=== PATIENT | male | born 1965 | race Caucasian/White ===

== ENCOUNTER 2024-05-25 15:59 | Emergency (ER) | payer BC, SELFPAY ==
[2024-05-25 16:01] VITALS: BP 127/79; PULSE 83; RESP 16; TEMP 36.9; O2SAT 98; BMI 25.8
[2024-05-25] MEDS: Fluorescein 1 MG STRIP 1 STRIP OPHTHALMIC (16:22)
--- NOTE | 2024-05-25 16:42 | EX.ED.VIS.EY ---
HPI History of Present Illness Chief Complaint: Eye Problem Informant: patient Narrative Narrative: Patient is a 58 year old male with history of allergies (currently getting allergy shots) presenting for evaluation after he was around glass that broke and he is worried he has some glass in his eyes. Patient states he was moving a safe and there was an old glass/ceramic globe that fell and shattered. Most of it hit his right arm but a lot of it got onto his face. He had some irritation of his eyes, right greater than left. He has a slight foreign body sensation of his right eye. He notes when he wiped his eyes there is small shards of glass bright below his eyes that he wiped away. He is worried there could be glass in his eye so he came in for further evaluation. Is a significant pain to his eyes and denies any vision changes. He wears reading glasses. He sees an it programmer, Dr. Zhao in [place]. Is unsure when his last tetanus was but thinks it for more than 10 years. No other complaints or concerns reported at this time. PFS PFS Home Medications ?Medication ?Instructions ?Recorded ?Last Taken ?Type peg 400-propylene glycol (PF) 0.4 1 drp EACH EYE Q6H PRN dry eye(s) 05/25/24 Unknown Rx %-0.3 % eye drops in a dropperette #30 ea (Systane (PF)) Allergy/AdvReac Type Severity Reaction Status Date / Time aspirin Allergy Severe Anaphylaxis Verified 05/25/24 16:01 NSAIDS (Non-Steroidal Allergy Severe PT UNSURE Verified 05/25/24 16:01 Anti-Inflamma OF REACTION Social History Smoking Status: Unknown if ever smoked ROS ROS ED Constitutional Constitutional ED: Denies chills or fever(s) Eyes Eyes: Reports other Details: right> left eye discomfort, FB sensation to the right eye ; Denies blurry vision or change in vision ENT ENT ED: Denies rhinorrhea or sore throat Cardiovascular Cardiovascular: Denies chest pain Respiratory/Chest Respiratory/Chest: Denies cough Gastrointestinal Gastrointestinal: Denies nausea or vomiting Musculoskeletal Musculoskeletal: Denies arthralgias or myalgias Integumentary Reports Abrasions Hematologic/Lymphatic Hematologic/Lymphatic: Denies easy bleeding or easy bruising EXAM Physical Exam Const Vital Signs: 05/25/24 16:01 Temperature 98.5 F Temperature Source Oral Pulse Rate 83 Respiratory Rate 16 Blood Pressure 127/79 H Blood Pressure Mean 95 Pulse Ox 98 Oxygen Delivery Method Room Air Positive well nourished and well developed General Appearance ED: well developed and NAD HEENT atraumatic Eyes Eyes Narrative: PERRL, EOMI, no conjunctival injection. No lacerations to the eyelids. Normal flare. No hyphema appreciated. On fluorescein exam negative Sidel sign. Other scattered punctate uptake consistent with dry eye (worse on the left than the right) but no uptake consistent with corneal abrasion. No foreign bodies appreciated. Neck supple Resp normal respiratory effort Cardio regular rate and regular rhythm Extremity normal to inspection Neuro oriented x3 Sensorium / Orientation: alert Motor Exam: Negative for general weakness Skin Skin Narrative: Small abrasion to the right forearm, no active bleeding MDM MDM MDM Narrative Medical decision making narrative: Patient valuated for concern of glass in his eyes. He was around glass that shattered. He did get some glass to his face and had some mild irritation to his eyes and wanted to be checked out as he did not want glass embedded in his eyes. Fluorescein exam is not consistent with corneal abrasion or foreign body. Patient's not having any eye discomfort. He does have some dry eye and we will start him on Systane eyedrops. He states that he does get some eye discomfort worse in the left than the right at the end of the day. He states he looks at a computer screen all day. Is encouraged follow-up with his it programmer. Given return precautions. Discharged home in stable condition. Tetanus update is offered. 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 Discharge Plan Triage Chief Complaint: Eye Problem Other Complaint: Upper Extremity Injury ED Provider: Flori Barbosa Dx/Rx/DC Orders Clinical Impression: Concern about eye disease without diagnosis, Dry eye Instructions: Treating Dry Eyes, ED Corneal Abrasion Prescriptions: New Systane (PF) 0.4-0.3 % dropperette 1 drp EACH EYE Q6H PRN (Reason: dry eye(s)) Qty: 30 0RF Primary Care Provider: Care Physician,No Primary Activity Restrictions/Additional Instructions: Please follow-up with your it programmer. You do not have any glass fragments or signs of injury to your eye on exam today. You have been given information about corneal abrasions however. You have some findings consistent with dry eye I do recommend you use lubricating eyedrops throughout the day to help with this. As we discussed, please follow-up with your primary care doctor about updating her tetanus shot and to see if this will interfere with your allergy shots. Print Language: [place] Citizen Disposition Disposition: Home, Self Care
== END 2024-05-25 17:23 | disposition home or self-care (01) ==
PROVIDERS: Emergency Provider Emergency Medicine; Visit Provider Emergency Medicine
DX: Z71.1 Person with feared health complaint in whom no diagnosis is made (principal); Z97.3 Presence of spectacles and contact lenses
CPT/HCPCS: 99283; A4216